=== PATIENT | female | born 1950 | race Hispanic/Latino ===

== ENCOUNTER 2019-02-26 13:10 | Inpatient (IN) | payer MEDICARE, OTHER ==
--- NOTE | 2019-02-26 14:52 | CT ---
Date of service: 02/26/2019 PROCEDURE: CT HEAD WITHOUT CONTRAST. HISTORY: head injury COMPARISON: None available. TECHNIQUE: Axial computed tomography images were obtained through the head/brain without intravenous contrast. Supplemental Coronal and Sagittal projections created and reviewed. Radiation dose: Total exam DLP = 806.93 mGy-cm. This CT exam was performed using one or more of the following dose reduction techniques: Automated exposure control, adjustment of the mA and/or kV according to patient size, and/or use of iterative reconstruction technique. FINDINGS: HEMORRHAGE: No intracranial hemorrhage. BRAIN: No mass effect or edema. No atrophy or chronic microvascular ischemic changes. VENTRICLES: Unremarkable. No hydrocephalus. CALVARIUM: Unremarkable. PARANASAL SINUSES: Unremarkable as visualized. No significant inflammatory changes. MASTOID AIR CELLS: Unremarkable as visualized. No inflammatory changes. OTHER FINDINGS: None. IMPRESSION: No acute intracranial abnormalities. No significant findings to account for the clinical presentation.
[2019-02-26 15:02] LABS: VENOUS BLOOD GAS BASE EXCESS 6.1 mmol/L (0.0-2.0); VENOUS BLOOD GAS PCO2 49 mmHg (40-60); VENOUS BLOOD GAS PO2 21 mm/Hg (30-55); VENOUS BLOOD PH 7.42 (7.32-7.43)
[2019-02-26 15:14] LABS: BASO % 0.3 % (0.0-2.0); EOS # 0.1 K/uL (0.0-0.7); EOS % 0.7 % (0.0-4.0); LYMPH # 0.5 K/uL (1.0-4.3); LYMPH % 6.3 % (20.0-40.0); MEAN CELL VOLUME 86.2 fl (81.0-99.0); MEAN CORPUSCULAR HEMOGLOBIN 28.8 pg (27.0-31.0); MEAN CORPUSCULAR HGB CONC 33.5 g/dL (33.0-37.0); MEAN PLATELET VOLUME 7.5 fl (7.2-11.7); MONO # 0.7 K/uL (0.0-0.8); MONO % 9.8 % (0.0-10.0); NEUT # 6.1 K/uL (1.8-7.0); NEUT % 82.9 % (50.0-75.0); NRBC % 0.1 % (0.0-0.0); PLATELET COUNT 261 K/uL (130-400); RBC 3.81 Mil/uL (3.80-5.20); RED CELL DISTRIBUTION WIDTH 14.3 % (11.5-14.5); WHITE BLOOD COUNT 7.4 K/uL (4.8-10.8)
[2019-02-26 15:23] LABS: BLOOD UREA NITROGEN 19 mg/dl (7-17); CALCIUM 10.1 mg/dL (8.4-10.2); GFR NON-AFRICAN AMERICAN > 60
--- NOTE | 2019-02-26 15:48 | ED PDOC ---
HPI: Trauma/Fall - HPI Time Seen by Provider: 02/26/19 13:25 Chief Complaint (Nursing): Trauma Chief Complaint (Provider): Trauma History Per: Patient Onset/Duration Of Symptoms: Hrs (1) Additional Complaint(s): 68 y/o female presents to the ED complaining for head injury after falling 1 hour ago today. Patient states she also has an injury on her right hand after recently falling a couple of times. She also reports she has swelling and wound with discharge on her left forearm for a week. Patient states her falls started after Reperda injection due to having a history of schizophrenia. Patient denies LOC, headache, fever, cough, chest pain, or any syncope. PMD: None provided Past Medical History Vital Signs: Last Vital Signs Temp 99.9 F H 02/26/19 14:36 Pulse 95 H 02/26/19 13:12 Resp 18 02/26/19 13:12 BP 143/80 02/26/19 13:12 Pulse Ox 96 02/26/19 13:12 - Medical History PMH: Anxiety, COPD, Depression, HTN, Hypercholesterolemia, Hyperlipidemia, Schizophrenia Denies: Chronic Kidney Disease - Surgical History Surgical History: Tonsillectomy, - Family History Family History: States: No Known Family Hx - Immunization History Hx Tetanus Toxoid Vaccination: No Hx Influenza Vaccination: No Hx Pneumococcal Vaccination: No - Home Medications Home Medications: Ambulatory Orders Medication Instructions Recorded Alendronate [Fosamax] 70 mg PO SUN 02/26/19 Atorvastatin [Lipitor] 10 mg PO DAILY 02/26/19 Baclofen [Lioresal] 10 mg PO Q12 02/26/19 Calcium Carbonate/Vitamin D3 1 tab PO Q12 02/26/19 [Calcium 500-Vit D3 200 Tablet] Cholecalciferol (Vitamin D3) 2,000 unit PO DAILY 02/26/19 [Vitamin D3] Docusate [Colace] 100 mg PO HS 02/26/19 Fluticasone/Salmeterol 250/50 1 puff IH Q12 02/26/19 [Advair Diskus 250/50] Gabapentin [Neurontin] 300 mg PO HS 02/26/19 Ginkgo Biloba 60 mg PO DAILY 02/26/19 Ibuprofen [Motrin Tab] 600 mg PO Q12 PRN 02/26/19 Lactulose [Generlac] 30 ml PO DAILY PRN 02/26/19 Lisinopril [Zestril] 10 mg PO DAILY 02/26/19 Loratadine [Claritin] 10 mg PO DAILY 02/26/19 Melatonin 5 mg PO HS 02/26/19 Memantine [Namenda] 10 mg PO Q12 02/26/19 Metoprolol Succinate XL [Toprol XL] 25 mg PO DAILY 02/26/19 Mirabegron [Myrbetriq] 25 mg PO DAILY 02/26/19 Mv,Min10/Folic Acid/D3/Ala/Lut 1 tab PO DAILY 02/26/19 [Strovite One Caplet] Olanzapine [Zyprexa] 15 mg PO HS 02/26/19 [place]-3 Fatty Acids/Fish Oil 1,000 mg PO BID 02/26/19 [[place]-3 1,000 mg Softgel] Omeprazole 40 mg PO DAILY 02/26/19 Oxybutynin XL [Ditropan XL] 10 mg PO HS 02/26/19 Ranitidine HCl [Zantac] 150 mg PO BID 02/26/19 Sertraline [Zoloft] 200 mg PO DAILY 02/26/19 Spironolactone [Aldactone] 25 mg PO DAILY 02/26/19 Vitamin E [Vitamin E 400 Units Cap] 400 unit PO DAILY 02/26/19 Zaleplon 5 mg PO HS PRN 02/26/19 - Allergies Allergies/Adverse Reactions: Allergies Allergy/AdvReac Type Severity Reaction Status Date / Time Sulfa (Sulfonamide Allergy RASH Verified 03/03/18 22:25 Antibiotics) Review of Systems ROS Statement: Except As Marked, All Systems Reviewed And Found Negative Constitutional: Negative for: Fever Cardiovascular: Negative for: Chest Pain Respiratory: Negative for: Cough Neurological: Positive for: Other (no syncope). Negative for: Headache Physical Exam - Reviewed Nursing Documentation Reviewed: Yes Vital Signs Reviewed: Yes - Physical Exam Appears: Positive for: Well, Non-toxic, No Acute Distress Head Exam: Positive for: ATRAUMATIC, NORMOCEPHALIC Skin: Positive for: Normal Color, Warm, Dry Eye Exam: Positive for: EOMI, Normal appearance, PERRL ENT: Positive for: Normal ENT Inspection Neck: Positive for: Normal, Painless ROM, Supple Cardiovascular/Chest: Positive for: Regular Rate, Rhythm. Negative for: Murmur Respiratory: Positive for: Normal Breath Sounds. Negative for: Respiratory Distress Gastrointestinal/Abdominal: Positive for: Normal Exam, Soft. Negative for: Tenderness Back: Positive for: Normal Inspection Extremity: Positive for: Normal ROM, Other (redness around right wrist. abrasion right hand and 5th finger. left forearms has swelling and a 5cm wound that is draning with purity fluid and surrounding erythema. no flatulent. ). Negative for: Deformity, Swelling Neurological/Psych: Positive for: Awake, Alert, Normal Tone, Oriented (x3). Negative for: Motor/Sensory Deficits - Laboratory Results Result Diagrams: 02/26/19 15:00 02/26/19 15:00 Lab Results: pO2 21 mm/Hg (30-55) L 02/26/19 14:59 VBG pH 7.42 (7.32-7.43) 02/26/19 14:59 VBG pCO2 49 mmHg (40-60) 02/26/19 14:59 VBG HCO3 28.0 mmol/L 02/26/19 14:59 VBG Total CO2 33.3 mmol/L (22-28) H 02/26/19 14:59 VBG O2 Sat (Calc) 34.0 % (40-65) L 02/26/19 14:59 VBG Base Excess 6.1 mmol/L (0.0-2.0) H 02/26/19 14:59 VBG Potassium 4.0 mmol/L (3.6-5.2) 02/26/19 14:59 Sodium 132.0 mmol/L (132-148) 02/26/19 14:59 Chloride 96.0 mmol/L (98-107) L 02/26/19 14:59 Glucose 105 mg/dL (65-105) 02/26/19 14:59 Lactate 1.0 mmol/L (0.7-2.1) 02/26/19 14:59 FiO2 21.0 % 02/26/19 14:59 Troponin I < 0.0120 ng/mL (0.00-0.120) 02/26/19 15:00 - ECG O2 Sat by Pulse Oximetry: 96 Medical Decision Making Medical Decision Making: Time:1356 Initial Impression: head injury, hand injury, falls, abscess and cellulitis on left foreharm Initial Plan: rule out intracranial bleeding, hand fracture, cellulitis with sepsis -CT -EKG -VBG shock panel -BMP -Troponin -CBC -Tylenol 325mg -Vancomycin inj 1gm -Blood culture -wound culture -x-ray Time: 1448 PROCEDURE: CT HEAD WITHOUT CONTRAST. HISTORY: head injury COMPARISON: None available. TECHNIQUE: Axial computed tomography images were obtained through the head/brain without intravenous contrast. Supplemental Coronal and Sagittal projections created and reviewed. Radiation dose: Total exam DLP = 806.93 mGy-cm. This CT exam was performed using one or more of the following dose reduction techniques: Automated exposure control, adjustment of the mA and/or kV according to patient size, and/or use of iterative reconstruction technique. FINDINGS: HEMORRHAGE: No intracranial hemorrhage. BRAIN: No mass effect or edema. No atrophy or chronic microvascular ischemic changes. VENTRICLES: Unremarkable. No hydrocephalus. CALVARIUM: Unremarkable. PARANASAL SINUSES: Unremarkable as visualized. No significant inflammatory changes. MASTOID AIR CELLS: Unremarkable as visualized. No inflammatory changes. OTHER FINDINGS: None. IMPRESSION: No acute intracranial abnormalities. No significant findings to account for the clinical presentation. Time: 1641 HAND XR RESULTS PROCEDURE: Right Hand Radiographs. HISTORY: right hand injury COMPARISON: None. TECHNIQUE: Three views obtained. FINDINGS: BONES: There is an oblique fracture involving the diaphysis of the right 5th metacarpal bone with minimal proximal distraction of the major fracture fragment. Non articular fracture however minimal comminution identified. No destructive bony lesions appreciated throughout. JOINTS: No subluxation or dislocation. Extensive degenerative joint space narrowing and osteophyte formation are identified developed related to the distal interphalangeal joints of the digits as well as the interphalangeal joint of the thumb compatible with advanced osteoarthritis. SOFT TISSUES: Minimal local soft tissue edema is seen related to the fracture site. OTHER FINDINGS: None. IMPRESSION: Oblique fracture with mild proximal distraction of the major fracture fragment at the left 5th metacarpal bone. Limited comminution is appreciate. No dislocation associated. ------ Scribe Attestation: Documented by Reba Coppola, acting as a scribe for Sherry Josue Provider Scribe Attestation: All medical record entries made by the Scribe were at my direction and personally dictated by me. I have reviewed the chart and agree that the record accurately reflects my personal performance of the history, physical exam, medical decision making, and the department course for this patient. I have also personally directed, reviewed, and agree with the discharge instructions and disposition. Time: 1730 -- Spoke to Dr. Cheng who requests a ulmagata splint to be placed and instructions to follow up in office. Scribe Attestation: Documented by Matthew Smith, acting as a scribe Hung Josue MD. Provider Scribe Attestation: All medical record entries made by the Scribe were at my direction and personally dictated by me. I have reviewed the chart and agree that the record accurately reflects my personal performance of the history, physical exam, medical decision making, and the department course for this patient. I have also personally directed, reviewed, and agree with the discharge instructions and disposition. Disposition - Clinical Impression Clinical Impression: Cellulitis of left arm, Right hand fracture, Sepsis - Patient ED Disposition Is Patient to be Admitted: Yes Discussed With : Trevor Griffiths Doctor Will See Patient In The: Hospital Counseled Patient/Family Regarding: Studies Performed, Diagnosis - Disposition Disposition Time: 18:00 Condition: FAIR - Pt Status Changed To: Hospital Disposition Of: Inpatient - Admit Certification Admit to Inpatient:: After my assessment, the patient will require hospitalization for at least two midnights. This is because of the severity of symptoms shown, intensity of services needed, and/or the medical risk in this patient being treated as an outpatient. - POA Present On Arrival: Falls Or Trauma
[2019-02-26] MEDS ORDERED: Vancomycin 1 g Inj ONE (16:14)
[2019-02-26 16:42] LABS: ANISOCYTOSIS SLIGHT; BANDS 1 % (0-2); EOSINOPHIL 1 % (0-7); LYMPHOCYTE 10 % (20-50); MONOCYTE 10 % (0-10); NEUTROPHIL 78 % (42-75); PLATELET ESTIMATE NORMAL (NORMAL); TOTAL CELLS COUNTED 100
[2019-02-26 16:43] LABS: HYPOCHROMIC SLIGHT
--- NOTE | 2019-02-26 16:44 | RAD ---
PROCEDURE: Right Hand Radiographs. HISTORY: right hand injury COMPARISON: None. TECHNIQUE: Three views obtained. FINDINGS: BONES: There is an oblique fracture involving the diaphysis of the right 5th metacarpal bone with minimal proximal distraction of the major fracture fragment. Non articular fracture however minimal comminution identified. No destructive bony lesions appreciated throughout. JOINTS: No subluxation or dislocation. Extensive degenerative joint space narrowing and osteophyte formation are identified developed related to the distal interphalangeal joints of the digits as well as the interphalangeal joint of the thumb compatible with advanced osteoarthritis. SOFT TISSUES: Minimal local soft tissue edema is seen related to the fracture site. OTHER FINDINGS: None. IMPRESSION: Oblique fracture with mild proximal distraction of the major fracture fragment at the left 5th metacarpal bone. Limited comminution is appreciate. No dislocation associated.
--- NOTE | 2019-02-26 19:17 | CARD ---
APPROVED REPORT Date of service: 02/26/2019 EKG Measurement Heart [id number] <Conclusion> Normal sinus rhythm Normal ECG
[2019-02-26] MEDS ORDERED: Fluticasone-Salmeterol 250-50mcg Diskus IH SCH (21:00)
[2019-02-26] MEDS ORDERED: OXYBUTYNIN 10 MG PO SCH (22:00)
[2019-02-26] MEDS: Calcium-Vit D 500 mg-200 Units Tab UD PO SCH (23:22)
[2019-02-26] MEDS: FLUTICASONE PROPION/SALMETEROL 113-14 IH SCH (23:23)
[2019-02-27 06:27] LABS: HEMOGLOBIN 10.4 g/dL (12.0-16.0); MEAN CELL VOLUME 87.2 fl (81.0-99.0); MEAN CORPUSCULAR HGB CONC 33.2 g/dL (33.0-37.0); RBC 3.6 Mil/uL (3.80-5.20); RED CELL DISTRIBUTION WIDTH 14.3 % (11.5-14.5); WHITE BLOOD COUNT 6.4 K/uL (4.8-10.8)
[2019-02-27 06:39] LABS: ALB/GLOB RATIO 1.2 (1.0-2.1); ALBUMIN 3.6 g/dL (3.5-5.0); ALT/SGPT 48 U/L (9-52); AST/SGOT 64 U/L (14-36); BLOOD UREA NITROGEN 20 mg/dl (7-17); CALCIUM 9.6 mg/dL (8.4-10.2); GFR NON-AFRICAN AMERICAN > 60
[2019-02-27 07:14] VITALS: BMI 24.0
[2019-02-27] MEDS ORDERED: GINKGO BILOBA 60 MG PO SCH (09:00)
[2019-02-27] MEDS ORDERED: Omega-3-Acid Ethyl Esters 1 GM Cap PO SCH (09:00)
[2019-02-27] MEDS: FLUTICASONE PROPION/SALMETEROL 113-14 IH SCH ×2 (09:19→21:10)
[2019-02-27] MEDS: Enoxaparin 40 mg Syringe SC SCH (09:22)
[2019-02-27] MEDS: Calcium-Vit D 500 mg-200 Units Tab UD PO SCH ×2 (09:23→21:10)
[2019-02-27] MEDS: Pantoprazole 40 mg EC Tab PO SCH (09:24)
[2019-02-27] MEDS: Metoprolol Succinate 25 mg XL Tab PO SCH (09:24)
[2019-02-27] MEDS: Cholecalciferol 1,000 INTLU TAB PO SCH (09:25)
--- NOTE | 2019-02-27 13:19 | CP.PCM.CON ---
History of Present Illness - History of Present Illness History of Present Illness: 68yo F presents to Ed for evaluation s/p fall and found to have a right wrist injury. General Surgery was consulted for evaluation of left forearm cellulitis. Pt reports that she previously had a pimple to left forearm area but about 1 week ago she ago had a fall and subsequently became to develop redness around the area. Pt also states she was picking at the pimple and squeezing. Reports minimal discomfort to left forearm and currently no active discharge. PMhx: HTN, schizophrenia, depression PSHx: . Review of Systems - Constitutional Constitutional: As Per HPI, Frequent Falls, Headache, Weakness. absent: Fatigue, Fever - EENT Eyes: absent: Loss of Vision Ears: absent: Decreased Hearing Nose/Mouth/Throat: absent: Epistaxis - Cardiovascular Cardiovascular: absent: Chest Pain, Chest Pain at Rest, Chest Pain with Acti vity, Claudication, Dyspnea - Respiratory Respiratory: As Per HPI. absent: Wheezing - Gastrointestinal Gastrointestinal: absent: Abdominal Pain, Bloating, Diarrhea, Dyspepsia, Hematochezia, Vomiting - Genitourinary Genitourinary: absent: Dysuria, Hematuria - Integumentary Integumentary: Skin Ulcer (to left forearm ), Swelling (left forearm), Other (erythema ) Past Patient History - Infectious Disease Hx of Infectious Diseases: None - Tetanus Immunizations Tetanus Immunization: Unknown - Past Medical History & Family History Past Medical History?: Yes - Past Social History Smoking Status: Never Smoked - CARDIAC Hx Cardiac Disorders: Yes Hx Hypertension: Yes - PULMONARY Hx Respiratory Disorders: Yes Hx Chronic Obstructive Pulmonary Disease (COPD): Yes - NEUROLOGICAL Hx Neurological Disorder: Yes Hx Dizziness: Yes - HEENT Hx HEENT Problems: Yes Other/Comment: Use Eyeglasses - RENAL Hx Chronic Kidney Disease: No - ENDOCRINE/METABOLIC Hx Endocrine Disorders: No - HEMATOLOGICAL/ONCOLOGICAL Hx Blood Disorders: No - INTEGUMENTARY Hx Dermatological Problems: Yes Other/Comment: 03-02-18 FADING BRUISE TO LEFT THIGH.DENIES FALLING.HIT IT ON SOMETHING. LARGE HORIZONTAL SCAR TO LOWER BACK.HAS A HAIRY BACK. - MUSCULOSKELETAL/RHEUMATOLOGICAL Hx Musculoskeletal Disorders: Yes Hx Falls: Yes Hx Fractures: Yes - GASTROINTESTINAL Hx Gastrointestinal Disorders: No - GENITOURINARY/GYNECOLOGICAL Hx Genitourinary Disorders: Yes Hx Urinary Tract Infection: Yes Other/Comment: STRESS INCONTINENCE,URGENCY. - PSYCHIATRIC Hx Psychophysiologic Disorder: Yes Hx Anxiety: Yes Hx Depression: Yes Hx Schizophrenia: Yes Hx Substance Use: No - SURGICAL HISTORY Hx Surgeries: Yes Hx Tonsillectomy: Yes Other/Comment: Herniated Septum - 1975 - ANESTHESIA Hx Anesthesia: Yes Hx Anesthesia Reactions: No Hx Malignant Hyperthermia: No Has any member of the family had a problem w/ anesthesia?: No Meds Allergies/Adverse Reactions: Allergies Allergy/AdvReac Type Severity Reaction Status Date / Time Sulfa (Sulfonamide Allergy RASH Verified 03/03/18 22:25 Antibiotics) - Medications Medications: Current Medications Acetaminophen (Tylenol 325mg Tab) 650 mg PO Q4 PRN PRN Reason: Pain, Mild (1-3) Alendronate Sodium (Fosamax) 70 mg PO [facility] Atorvastatin Calcium (Lipitor) 10 mg PO DAILY [facility] Last Admin: 02/27/19 09:22 Dose: 10 mg Baclofen (Lioresal) 10 mg PO Q12 [facility] Last Admin: 02/27/19 09:22 Dose: 10 mg Calcium/Vitamin D ([place]yster [place] Calcium/Vitamin D 500 Mg-200 Iu) 1 tab PO Q12 [facility] Last Admin: 02/27/19 09:23 Dose: 1 tab Cholecalciferol (Vitamin D) 2,000 intlu PO DAILY [facility] Last Admin: 02/27/19 09:25 Dose: 2,000 intlu Docusate Sodium (Colace) 100 mg PO [facility] Last Admin: 02/26/19 23:20 Dose: 100 mg Enoxaparin Sodium (Lovenox) 40 mg SC DAILY [facility]; Protocol Last Admin: 02/27/19 09:22 Dose: 40 mg Famotidine (Pepcid) 20 mg PO BID [facility] Last Admin: 02/27/19 09:24 Dose: 20 mg Gabapentin (Neurontin) 300 mg PO [facility] Last Admin: 02/26/19 23:22 Dose: 300 mg Home Med (Ginkgo Biloba [Ginkgo Biloba]) 60 mg PO DAILY [facility] Home Med (Melatonin [Melatonin]) 5 mg PO HS [facility] Home Med (Mirabegron [Myrbetriq]) 25 mg PO DAILY [facility] Home Med (Mv,Min10/Folic Acid/D3/Ala/Lut [Strovite One Caplet]) 1 tab PO DAILY [facility] Home Med ([place]-3 Fatty Acids/Fish Oil [[place]-3 1,000 Mg Softgel]) 1,000 mg PO BID [facility] Home Med (Zaleplon ) 5 mg PO HS PRN PRN Reason: Insomnia Vancomycin HCl 1 gm/ Sodium (Chloride) 250 mls @ 166.667 mls/hr IVPB Q12H [facility]; Protocol Last Admin: 02/27/19 05:41 Dose: 166.667 mls/hr Ibuprofen (Motrin Tab) 600 mg PO Q12 PRN PRN Reason: Pain, moderate (4-7) Lisinopril (Zestril) 10 mg PO DAILY [facility] Last Admin: 02/27/19 09:25 Dose: 10 mg Loratadine (Claritin) 10 mg PO DAILY [facility] Last Admin: 02/27/19 09:21 Dose: 10 mg Memantine (Namenda) 10 mg PO Q12 [facility] Last Admin: 02/27/19 09:23 Dose: 10 mg Metoprolol Succinate (Toprol Xl) 25 mg PO DAILY [facility] Last Admin: 02/27/19 09:24 Dose: 25 mg Olanzapine (Zyprexa) 15 mg PO DAILY [facility] Last Admin: 02/27/19 09:26 Dose: 15 mg Oxybutynin Chloride (Ditropan Tab) 5 mg PO BID [facility] Last Admin: 02/27/19 11:41 Dose: 5 mg Pantoprazole Sodium (Protonix Ec Tab) 40 mg PO DAILY [facility] Last Admin: 02/27/19 09:24 Dose: 40 mg Sertraline HCl (Zoloft) 200 mg PO DAILY [facility] Last Admin: 02/27/19 09:26 Dose: 200 mg Spironolactone (Aldactone) 25 mg PO DAILY [facility] Last Admin: 02/27/19 09:20 Dose: 25 mg Vitamin E (Vitamin E 400 Units Cap) 400 intlu PO DAILY [facility] Last Admin: 02/27/19 09:25 Dose: 400 intlu Physical Exam - Constitutional Appears: No Acute Distress - Head Exam Head Exam: NORMOCEPHALIC - Eye Exam Eye Exam: EOMI, PERRL Additional comments: bruising to right periorbital region - ENT Exam ENT Exam: Mucous Membranes Moist - Neck Exam Neck exam: Negative for: Lymphadenopathy - Respiratory Exam Respiratory Exam: Clear to Auscultation Bilateral, NORMAL BREATHING PATTERN - Cardiovascular Exam Cardiovascular Exam: +S1, +S2 - GI/Abdominal Exam GI & Abdominal Exam: Soft. absent: Distended, Guarding, Tenderness - Skin Additional comments: left forearm swelling, erythema with 1x 1.5 wound with scab over it soft, minimal fluctuance, surrounding erythema, intact range of motion, +radial pulse, full range of motion to left hand area right hand with splint in place m Results - Vital Signs Recent Vital Signs: Last Vital Signs Temp 97.6 F 02/27/19 08:41 Pulse 88 02/27/19 11:25 Resp 20 02/27/19 08:41 BP 125/63 02/27/19 09:25 Pulse Ox 97 02/27/19 11:25 - Labs Result Diagrams: 02/27/19 05:25 02/27/19 05:25 Labs: Laboratory Results - last 24 hr 02/26/19 02/26/19 02/26/19 14:59 15:00 15:00 WBC 7.4 RBC 3.81 Hgb 11.0 L Hct 32.9 L MCV 86.2 MCH 28.8 MCHC 33.5 RDW 14.3 Plt Count 261 MPV 7.5 Neut % (Auto) 82.9 H Lymph % (Auto) 6.3 L [place] % (Auto) 9.8 Eos % (Auto) 0.7 Baso % (Auto) 0.3 Neut # (Auto) 6.1 Lymph # (Auto) 0.5 L [place] # (Auto) 0.7 Eos # (Auto) 0.1 Baso # (Auto) 0.0 Neutrophils % (Manual) 78 H Band Neutrophils % 1 Lymphocytes % (Manual) 10 L Monocytes % (Manual) 10 Eosinophils % (Manual) 1 Platelet Estimate Normal Hypochromasia (manual) Slight Anisocytosis (manual) Slight pO2 21 L VBG pH 7.42 VBG pCO2 49 VBG HCO3 28.0 VBG Total CO2 33.3 H VBG O2 Sat (Calc) 34.0 L VBG Base Excess 6.1 H VBG Potassium 4.0 Sodium 132.0 133 Chloride 96.0 L 95 L Glucose 105 Lactate 1.0 FiO2 21.0 Potassium 4.0 Carbon Dioxide 30 Anion Gap 12 BUN 19 H Creatinine 0.6 L Est GFR ( Amer) > 60 Est GFR (Non-Af Amer) > 60 Random Glucose 107 H Calcium 10.1 Total Bilirubin AST ALT Alkaline Phosphatase Troponin I < 0.0120 Total Protein Albumin Globulin Albumin/Globulin Ratio Venous Blood Potassium 4.0 02/27/19 02/27/19 05:25 05:25 WBC 6.4 RBC 3.60 L Hgb 10.4 L Hct 31.3 L MCV 87.2 MCH 29.0 MCHC 33.2 RDW 14.3 Plt Count 253 MPV Neut % (Auto) Lymph % (Auto) [place] % (Auto) Eos % (Auto) Baso % (Auto) Neut # (Auto) Lymph # (Auto) [place] # (Auto) Eos # (Auto) Baso # (Auto) Neutrophils % (Manual) Band Neutrophils % Lymphocytes % (Manual) Monocytes % (Manual) Eosinophils % (Manual) Platelet Estimate Hypochromasia (manual) Anisocytosis (manual) pO2 VBG pH VBG pCO2 VBG HCO3 VBG Total CO2 VBG O2 Sat (Calc) VBG Base Excess VBG Potassium Sodium 136 Chloride 100 Glucose Lactate FiO2 Potassium 3.8 Carbon Dioxide 26 Anion Gap 14 BUN 20 H Creatinine 0.5 L Est GFR ( Amer) > 60 Est GFR (Non-Af Amer) > 60 Random Glucose 91 Calcium 9.6 Total Bilirubin 0.7 AST 64 H D ALT 48 Alkaline Phosphatase 84 Troponin I Total Protein 6.6 Albumin 3.6 Globulin 3.0 Albumin/Globulin Ratio 1.2 Venous Blood Potassium Assessment & Plan - Assessment and Plan (Free Text) Assessment: 68yo F s/p fall with left arm cellulitis with minimal central area of fluctuance -wound actively draining -wound culture sent -IV abx -warm compresses to left forearm area -will monitor
--- NOTE | 2019-02-27 16:16 | US ---
Date of service: 02/27/2019 PROCEDURE: Left Upper Extremity Venous Doppler HISTORY: r/o dvt COMPARISON: None available. TECHNIQUE: Left upper extremity deep veins, including the lower internal jugular, subclavian, axillary and brachial veins, were evaluated flow, graded compressibility, augmentation and respiratory phasicity. FINDINGS: Normal flow, compressibility and respiratory phasicity was observed in the the left upper extremity deep veins. The cephalic ulnar and radial veins also appear patent. IMPRESSION: No sonographic evidence of deep venous thrombosis left upper extremity.
--- NOTE | 2019-02-27 21:32 | CP.PCM.CON ---
History of Present Illness - History of Present Illness History of Present Illness: pt is a 68yo F with history of schizophrenia presents to [facility] for evaluation s/p fall pt on evaluation reported have been diagnosed with schizophrenia since age 34, multiple psychiatric hospitalizations including [facility] and last hospi talization 02/2018 pt currently lives by herself has a case manger she sees twice a week and follows up with psychiatrist in [place] pt reported at current time she has no changes in sleep or appetite, denied mood changes, denied psychotic symptoms reported that she continues to have problem with hoarding which his nurse case management is trying to help her with, denied any current suicidal or homicidal ideation Past Patient History - Infectious Disease Hx of Infectious Diseases: None - Tetanus Immunizations Tetanus Immunization: Unknown - Past Medical History & Family History Past Medical History?: Yes - Past Social History Smoking Status: Never Smoked - CARDIAC Hx Cardiac Disorders: Yes Hx Hypertension: Yes - PULMONARY Hx Respiratory Disorders: Yes Hx Chronic Obstructive Pulmonary Disease (COPD): Yes - NEUROLOGICAL Hx Neurological Disorder: Yes Hx Dizziness: Yes - HEENT Hx HEENT Problems: Yes Other/Comment: Use Eyeglasses - RENAL Hx Chronic Kidney Disease: No - ENDOCRINE/METABOLIC Hx Endocrine Disorders: No - HEMATOLOGICAL/ONCOLOGICAL Hx Blood Disorders: No - INTEGUMENTARY Hx Dermatological Problems: Yes Other/Comment: 03-02-18 FADING BRUISE TO LEFT THIGH.DENIES FALLING.HIT IT ON SOMETHING. LARGE HORIZONTAL SCAR TO LOWER BACK.HAS A HAIRY BACK. - MUSCULOSKELETAL/RHEUMATOLOGICAL Hx Musculoskeletal Disorders: Yes Hx Falls: Yes Hx Fractures: Yes - GASTROINTESTINAL Hx Gastrointestinal Disorders: No - GENITOURINARY/GYNECOLOGICAL Hx Genitourinary Disorders: Yes Hx Urinary Tract Infection: Yes Other/Comment: STRESS INCONTINENCE,URGENCY. - PSYCHIATRIC Hx Psychophysiologic Disorder: Yes Hx Anxiety: Yes Hx Depression: Yes Hx Schizophrenia: Yes Hx Substance Use: No - SURGICAL HISTORY Hx Surgeries: Yes Hx Tonsillectomy: Yes Other/Comment: Herniated Septum - 1974 - ANESTHESIA Hx Anesthesia: Yes Hx Anesthesia Reactions: No Hx Malignant Hyperthermia: No Has any member of the family had a problem w/ anesthesia?: No Meds Allergies/Adverse Reactions: Allergies Allergy/AdvReac Type Severity Reaction Status Date / Time Sulfa (Sulfonamide Allergy RASH Verified 03/03/18 22:25 Antibiotics) - Medications Medications: Current Medications Acetaminophen (Tylenol 325mg Tab) 650 mg PO Q4 PRN PRN Reason: Pain, Mild (1-3) Alendronate Sodium (Fosamax) 70 mg PO SUN [facility] Atorvastatin Calcium (Lipitor) 10 mg PO DAILY [facility] Last Admin: 02/27/19 09:22 Dose: 10 mg Baclofen (Lioresal) 10 mg PO Q12 [facility] Last Admin: 02/27/19 21:10 Dose: 10 mg Calcium/Vitamin D (Oyster Shell Calcium/Vitamin D 500 Mg-200 Iu) 1 tab PO Q12 [facility] Last Admin: 02/27/19 21:10 Dose: 1 tab Cholecalciferol (Vitamin D) 2,000 intlu PO DAILY [facility] Last Admin: 02/27/19 09:25 Dose: 2,000 intlu Docusate Sodium (Colace) 100 mg PO HS [facility] Last Admin: 02/27/19 21:10 Dose: 100 mg Enoxaparin Sodium (Lovenox) 40 mg SC DAILY [facility]; Protocol Last Admin: 02/27/19 09:22 Dose: 40 mg Famotidine (Pepcid) 20 mg PO BID [facility] Last Admin: 02/27/19 18:08 Dose: 20 mg Gabapentin (Neurontin) 300 mg PO HS [facility] Last Admin: 02/27/19 21:10 Dose: 300 mg Home Med (Ginkgo Biloba [Ginkgo Biloba]) 60 mg PO DAILY [facility] Home Med (Melatonin [Melatonin]) 5 mg PO HS [facility] Home Med (Mirabegron [Myrbetriq]) 25 mg PO DAILY [facility] Home Med (Mv,Min10/Folic Acid/D3/Ala/Lut [Strovite One Caplet]) 1 tab PO DAILY [facility] Home Med (Zaleplon ) 5 mg PO HS PRN PRN Reason: Insomnia Vancomycin HCl 1 gm/ Sodium (Chloride) 250 mls @ 166.667 mls/hr IVPB Q12H [facility]; Protocol Last Admin: 02/27/19 18:47 Dose: 166.667 mls/hr Ibuprofen (Motrin Tab) 600 mg PO Q12 PRN PRN Reason: Pain, moderate (4-7) Lisinopril (Zestril) 10 mg PO DAILY [facility] Last Admin: 02/27/19 09:25 Dose: 10 mg Loratadine (Claritin) 10 mg PO DAILY [facility] Last Admin: 04/16/19 09:21 Dose: 10 mg Memantine (Namenda) 10 mg PO Q12 [facility] Last Admin: 02/27/19 21:10 Dose: 10 mg Metoprolol Succinate (Toprol Xl) 25 mg PO DAILY [facility] Last Admin: 02/27/19 09:24 Dose: 25 mg Olanzapine (Zyprexa) 15 mg PO DAILY [facility] Last Admin: 02/27/19 09:26 Dose: 15 mg [id number] Ethyl Esters (Lovaza) 1 gm PO BID [facility] Oxybutynin Chloride (Ditropan Tab) 5 mg PO BID [facility] Last Admin: 02/27/19 18:08 Dose: 5 mg Pantoprazole Sodium (Protonix Ec Tab) 40 mg PO DAILY [facility] Last Admin: 02/27/19 09:24 Dose: 40 mg Sertraline HCl (Zoloft) 200 mg PO DAILY [facility] Last Admin: 02/27/19 09:26 Dose: 200 mg Spironolactone (Aldactone) 25 mg PO DAILY [facility] Last Admin: 02/27/19 09:20 Dose: 25 mg Vitamin E (Vitamin E 400 Units Cap) 400 intlu PO DAILY [facility] Last Admin: 02/27/19 09:25 Dose: 400 intlu Physical Exam - Psychiatric Exam Additional comments: pt seen sitting on achair, good eye contact speech normal thought form circumstantial, reported mood fine affect appropriate concrete thought process denied suicidal or homicidal ideation, denied perceptual disturbances, non elicited, alert awake oriented to person and place fair insight and judgment Results - Vital Signs Recent Vital Signs: Last Vital Signs Temp 98.3 F 02/27/19 17:00 Pulse 71 02/27/19 17:00 Resp 18 02/27/19 17:00 BP 117/73 02/27/19 17:00 Pulse Ox 97 02/27/19 17:00 - Labs Result Diagrams: 02/27/19 05:25 02/27/19 05:25 Labs: Laboratory Results - last 24 hr 02/27/19 02/27/19 02/27/19 05:25 05:25 16:55 WBC 6.4 RBC 3.60 L Hgb 10.4 L Hct 31.3 L MCV 87.2 MCH 29.0 MCHC 33.2 RDW 14.3 Plt Count 253 Sodium 136 Potassium 3.8 Chloride 100 Carbon Dioxide 26 Anion Gap 14 BUN 20 H Creatinine 0.5 L Est GFR ( Amer) > 60 Est GFR (Non-Af Amer) > 60 Random Glucose 91 Calcium 9.6 Iron 18 L TIBC 271 % Saturation 7 L Ferritin Total Bilirubin 0.7 AST 64 H D ALT 48 Alkaline Phosphatase 84 Total Protein 6.6 Albumin 3.6 Globulin 3.0 Albumin/Globulin Ratio 1.2 Vitamin B12 25-OH Vitamin D Total 99.2 02/27/19 16:55 WBC RBC Hgb Hct MCV MCH MCHC RDW Plt Count Sodium Potassium Chloride Carbon Dioxide Anion Gap BUN Creatinine Est GFR ( Amer) Est GFR (Non-Af Amer) Random Glucose Calcium Iron TIBC % Saturation Ferritin 106.0 Total Bilirubin AST ALT Alkaline Phosphatase Total Protein Albumin Globulin Albumin/Globulin Ratio Vitamin B12 879 25-OH Vitamin D Total Assessment & Plan - Assessment and Plan (Free Text) Assessment: schizophrenia hoarding disorder Plan: pt at current mental status stable recommend to decrease zyprexa to 10mg daily decrease zoloft to 150 mg daily recommend that social services manager to contact nurse case management for more collateral information about patient living situation
[2019-02-28 06:50] LABS: ALB/GLOB RATIO 1.1 (1.0-2.1); ALBUMIN 3.3 g/dL (3.5-5.0); ALT/SGPT 50 U/L (9-52); AST/SGOT 52 U/L (14-36); BLOOD UREA NITROGEN 20 mg/dl (7-17); CALCIUM 9.6 mg/dL (8.4-10.2); GFR NON-AFRICAN AMERICAN > 60
[2019-02-28 06:56] LABS: BASO % 0.5 % (0.0-2.0); EOS # 0.3 K/uL (0.0-0.7); EOS % 5.2 % (0.0-4.0); HEMOGLOBIN 10.2 g/dL (12.0-16.0); LYMPH # 0.6 K/uL (1.0-4.3); LYMPH % 10.9 % (20.0-40.0); MEAN CELL VOLUME 86.3 fl (81.0-99.0); MEAN CORPUSCULAR HEMOGLOBIN 29.1 pg (27.0-31.0); MEAN CORPUSCULAR HGB CONC 33.7 g/dL (33.0-37.0); MEAN PLATELET VOLUME 7.8 fl (7.2-11.7); MONO # 0.7 K/uL (0.0-0.8); MONO % 11.5 % (0.0-10.0); NEUT # 4.1 K/uL (1.8-7.0); NEUT % 71.9 % (50.0-75.0); RBC 3.49 Mil/uL (3.80-5.20); RED CELL DISTRIBUTION WIDTH 14.2 % (11.5-14.5); WHITE BLOOD COUNT 5.7 K/uL (4.8-10.8)
[2019-02-28] MEDS ORDERED: Hydrogen Peroxide 237 ML SOL TP ONE (09:19)
[2019-02-28] MEDS: FLUTICASONE PROPION/SALMETEROL 113-14 IH SCH ×2 (09:39→23:06)
[2019-02-28] MEDS: Cholecalciferol 1,000 INTLU TAB PO SCH (09:40)
[2019-02-28] MEDS: Omega-3-Acid Ethyl Esters 1 GM Cap PO SCH ×2 (09:40→16:56)
[2019-02-28] MEDS: Calcium-Vit D 500 mg-200 Units Tab UD PO SCH ×2 (09:40→23:01)
[2019-02-28] MEDS: Multivitamin With Minerals Tab PO SCH (09:40)
[2019-02-28] MEDS: Enoxaparin 40 mg Syringe SC SCH (09:41)
[2019-02-28] MEDS: Metoprolol Succinate 25 mg XL Tab PO SCH (09:41)
[2019-02-28] MEDS: Pantoprazole 40 mg EC Tab PO SCH (09:42)
--- NOTE | 2019-02-28 11:44 | CP.PCM.PN ---
<Latonia Gonzáles - Last Filed: 02/28/19 11:56> Subjective - Date & Time of Evaluation Date of Evaluation: 02/28/19 Time of Evaluation: 11:44 - Subjective Subjective: General Surgery Progress Note: Dr. Kenyon 68 year old female patient seen and examined this am. Patient resting comfortably and in NAD. No acute events overnight. Patient reports mild pain to the left forearm at this time. Denies nausea/vomiting/fever/shortness of breath. Objective - Vital Signs/Intake and Output Vital Signs (last 24 hours): Temp Pulse Resp BP Pulse Ox 98.9 F 73 20 118/65 95 02/28/19 07:52 02/28/19 10:03 02/28/19 07:52 02/28/19 10:03 02/28/19 07:52 - Medications Medications: Current Medications Acetaminophen (Tylenol 325mg Tab) 650 mg PO Q4 PRN PRN Reason: Pain, Mild (1-3) Alendronate Sodium (Fosamax) 70 mg PO [facility] Atorvastatin Calcium (Lipitor) 10 mg PO DAILY [facility] Last Admin: 02/28/19 09:43 Dose: 10 mg Baclofen (Lioresal) 10 mg PO Q12 [facility] Last Admin: 02/28/19 09:42 Dose: 10 mg Calcium/Vitamin D (Oyster Shell Calcium/Vitamin D 500 Mg-200 Iu) 1 tab PO Q12 [facility] Last Admin: 02/28/19 09:40 Dose: 1 tab Cholecalciferol (Vitamin D) 2,000 intlu PO DAILY [facility] Last Admin: 02/28/19 09:40 Dose: 2,000 intlu Docusate Sodium (Colace) 100 mg PO [facility] Last Admin: 02/27/19 21:10 Dose: 100 mg Enoxaparin Sodium (Lovenox) 40 mg SC DAILY [facility]; Protocol Last Admin: 02/28/19 09:41 Dose: 40 mg Famotidine (Pepcid) 20 mg PO BID [facility] Last Admin: 02/28/19 09:39 Dose: 20 mg Gabapentin (Neurontin) 300 mg PO [facility] Last Admin: 02/27/19 21:10 Dose: 300 mg Vancomycin HCl 1 gm/ Sodium (Chloride) 250 mls @ 166.667 mls/hr IVPB Q12H [facility]; Protocol Last Admin: 02/28/19 05:06 Dose: 166.667 mls/hr Ibuprofen (Motrin Tab) 600 mg PO Q12 PRN PRN Reason: Pain, moderate (4-7) Lisinopril (Zestril) 10 mg PO DAILY [facility] Last Admin: 02/28/19 10:03 Dose: 10 mg Loratadine (Claritin) 10 mg PO DAILY [facility] Last Admin: 02/28/19 09:40 Dose: 10 mg Memantine (Namenda) 10 mg PO Q12 [facility] Last Admin: 02/28/19 09:41 Dose: 10 mg Metoprolol Succinate (Toprol Xl) 25 mg PO DAILY [facility] Last Admin: 02/28/19 09:41 Dose: 25 mg Multivitamins/Minerals (Therapeutic-M Tab) 1 tab PO DAILY [facility] Last Admin: 02/28/19 09:40 Dose: 1 tab Olanzapine (Zyprexa) 10 mg PO HS [facility] [id number] Ethyl Esters (Lovaza) 1 gm PO BID [facility] Last Admin: 02/28/19 09:40 Dose: 1 gm Oxybutynin Chloride (Ditropan Tab) 5 mg PO BID [facility] Last Admin: 02/28/19 09:43 Dose: 5 mg Pantoprazole Sodium (Protonix Ec Tab) 40 mg PO DAILY [facility] Last Admin: 02/28/19 09:42 Dose: 40 mg Sertraline HCl (Zoloft) 150 mg PO DAILY [facility] Spironolactone (Aldactone) 25 mg PO DAILY [facility] Last Admin: 02/28/19 09:42 Dose: 25 mg Vitamin E (Vitamin E 400 Units Cap) 400 intlu PO DAILY [facility] Last Admin: 02/28/19 09:40 Dose: 400 intlu Zolpidem Tartrate (Ambien) 5 mg PO HS PRN PRN Reason: Insomnia - Labs Labs: 02/28/19 06:29 02/28/19 06:29 - Constitutional Appears: Non-toxic, No Acute Distress - Head Exam Head Exam: ATRAUMATIC, NORMOCEPHALIC - Eye Exam Eye Exam: Normal appearance Pupil Exam: NORMAL ACCOMODATION - ENT Exam ENT Exam: Mucous Membranes Moist - Respiratory Exam Respiratory Exam: NORMAL BREATHING PATTERN - GI/Abdominal Exam GI & Abdominal Exam: Soft. absent: Tenderness - Extremities Exam Extremities Exam: absent: Calf Tenderness Additional comments: Left arm abscess measuring approximately 1.0 x 1.5 cm, erythema appreciated circumfrentially, drainage appreciated Right arm in volar splint - Neurological Exam Neurological Exam: Alert, Awake, Oriented x3 - Psychiatric Exam Psychiatric exam: Normal Affect, Normal Mood - Skin Skin Exam: Warm Assessment and Plan - Assessment and Plan (Free Text) Assessment: 68 year old female patient with left arm cellulitis with abscess Plan: - Heart healthy diet - Wound culture L arm; MRSA - Local wound care - IV abx - Pain control - Warm compresses to left forearm area Latonia Gonzáles PGY1 <George Kenyon - Last Filed: 02/28/19 13:51> Objective - Vital Signs/Intake and Output Vital Signs (last 24 hours): Temp Pulse Resp BP Pulse Ox 98.9 F 73 20 118/65 95 02/28/19 07:52 02/28/19 10:03 02/28/19 07:52 02/28/19 10:03 02/28/19 07:52 - Medications Medications: Current Medications Acetaminophen (Tylenol 325mg Tab) 650 mg PO Q4 PRN PRN Reason: Pain, Mild (1-3) Alendronate Sodium (Fosamax) 70 mg PO SUN [facility] Atorvastatin Calcium (Lipitor) 10 mg PO DAILY [facility] Last Admin: 02/28/19 09:43 Dose: 10 mg Baclofen (Lioresal) 10 mg PO Q12 [facility] Last Admin: 02/28/19 09:42 Dose: 10 mg Calcium/Vitamin D (Oyster Shell Calcium/Vitamin D 500 Mg-200 Iu) 1 tab PO Q12 [facility] Last Admin: 02/28/19 09:40 Dose: 1 tab Cholecalciferol (Vitamin D) 2,000 intlu PO DAILY [facility] Last Admin: 02/28/19 09:40 Dose: 2,000 intlu Docusate Sodium (Colace) 100 mg PO HS [facility] Last Admin: 02/27/19 21:10 Dose: 100 mg Enoxaparin Sodium (Lovenox) 40 mg SC DAILY [facility]; Protocol Last Admin: 02/28/19 09:41 Dose: 40 mg Famotidine (Pepcid) 20 mg PO BID [facility] Last Admin: 02/28/19 09:39 Dose: 20 mg Gabapentin (Neurontin) 300 mg PO HS [facility] Last Admin: 02/27/19 21:10 Dose: 300 mg Vancomycin HCl 1 gm/ Sodium (Chloride) 250 mls @ 166.667 mls/hr IVPB Q12H [facility]; Protocol Last Admin: 02/28/19 05:06 Dose: 166.667 mls/hr Ibuprofen (Motrin Tab) 600 mg PO Q12 PRN PRN Reason: Pain, moderate (4-7) Lisinopril (Zestril) 10 mg PO DAILY [facility] Last Admin: 02/28/19 10:03 Dose: 10 mg Loratadine (Claritin) 10 mg PO DAILY [facility] Last Admin: 02/28/19 09:40 Dose: 10 mg Memantine (Namenda) 10 mg PO Q12 [facility] Last Admin: 02/28/19 09:41 Dose: 10 mg Metoprolol Succinate (Toprol Xl) 25 mg PO DAILY [facility] Last Admin: 02/28/19 09:41 Dose: 25 mg Multivitamins/Minerals (Therapeutic-M Tab) 1 tab PO DAILY [facility] Last Admin: 02/28/19 09:40 Dose: 1 tab Olanzapine (Zyprexa) 10 mg PO HS [facility] [id number] Ethyl Esters (Lovaza) 1 gm PO BID [facility] Last Admin: 02/28/19 09:40 Dose: 1 gm Oxybutynin Chloride (Ditropan Tab) 5 mg PO BID [facility] Last Admin: 02/28/19 09:43 Dose: 5 mg Pantoprazole Sodium (Protonix Ec Tab) 40 mg PO DAILY [facility] Last Admin: 02/28/19 09:42 Dose: 40 mg Sertraline HCl (Zoloft) 150 mg PO DAILY [facility] Last Admin: 02/28/19 12:45 Dose: 150 mg Spironolactone (Aldactone) 25 mg PO DAILY [facility] Last Admin: 02/28/19 09:42 Dose: 25 mg Vitamin E (Vitamin E 400 Units Cap) 400 intlu PO DAILY [facility] Last Admin: 02/28/19 09:40 Dose: 400 intlu Zolpidem Tartrate (Ambien) 5 mg PO HS PRN PRN Reason: Insomnia - Labs Labs: 02/28/19 06:29 02/28/19 06:29 Assessment and Plan - Assessment and Plan (Free Text) Plan: seen at bedside, resting comfortably. pt states pain slight better today, improved movement to left lower extremity gen: awake, alert, NAD ext: left gluteal/thigh ecchymosis, tenderness, improved range of motion, +DP, i ntact sentation 68yo M with left thigh/gluteal hematoma -warm compresses to left thigh area -PT f/u -no further surgical intervention at this time surgery will sign off
--- NOTE | 2019-02-28 13:59 | CP.PCM.CON ---
History of Present Illness - History of Present Illness History of Present Illness: 68yo F was seen in ER for right wrist injury and admitted for left arm cellulitis referred for ID eval of same Apparently started as a pimple and became secondarily infected denies fever chiills Has had MRSA in past PMhx: HTN, schizophrenia, depression PSHx: . Review of Systems - Review of Systems All systems: reviewed and no additional remarkable complaints except - Constitutional Constitutional: As Per HPI - EENT Eyes: absent: As Per HPI, Blind Spots, Blurred Vision, Change in Vision, Decreased Night Vision, Diplopia, Discharge, Dry Eye, Exophthalmos, Floaters, I rritation, Itchy Eyes, Loss of Peripheral Vision, Pain, Photophobia, Requires Corrective Lenses, Sees Flashes, Spots in Vision, Tunnel Vision, Other Visual Disturbances, Loss of Vision, Other Ears: absent: As Per HPI, Decreased Hearing, Ear Discharge, Ear Pain, Tinnitus, Abnormal Hearing, Disequilibrium, Dizziness, Other Nose/Mouth/Throat: absent: As Per HPI, Epistaxis, Nasal Congestion, Nasal Discharge, Nasal Obstruction, Nasal Trauma, Nose Pain, Post Nasal Drip, Sinus Pain, Sinus Pressure, Bleeding Gums, Change in Voice, Dental Pain, Dry Mouth, Dysphagia, Halitosis, Hoarsness, Lip Swelling, Mouth Lesions, Mouth Pain, Odynophagia, Sore Throat, Throat Swelling, Tongue Swelling, Facial Pain, Neck Pain, Neck Mass, Other - Breasts Breasts: absent: As Per HPI, Change in Shape, Mass, Pain, Nipple Discharge, Nipple Inversion, Skin Changes, Swelling, Other - Cardiovascular Cardiovascular: absent: As Per HPI, Acrocyanosis, Chest Pain, Chest Pain at Rest, Chest Pain with Activity, Claudication, Diaphoresis, Dyspnea, Dyspnea on Exertion, Edema, Irregular Heart Rhythm, Pain Radiating to Arm/Neck/Jaw, Leg Edema, Leg Ulcers, Lightheadedness, Orthopnea, Palpitations, Paroxysmal Nocturnal Dyspnea, Pedal Edema, Radiating Pain, Rapid Heart Rate, Slow Heart Rate, Syncope, Other - Respiratory Respiratory: absent: As Per HPI, Cough, Dyspnea, Hemoptysis, Dyspnea on Exertion, Wheezing, Snoring, Stridor, Pain on Inspiration, Chest Congestion, Excessive Mucous Production, Change in Mucous Color, Pain with Coughing, Other - Gastrointestinal Gastrointestinal: absent: As Per HPI, Abdominal Pain, Belching, Bloating, Change in Bowel Habits, Change in Stool Character, Coffee Ground Emesis, Constipation, Cramping, Diarrhea, Dyspepsia, Dysphagia, Early Satiety, Excessive Flatus, Fecal Incontinence, Heartburn, Hematemesis, Hematochezia, Loose Stools, Melena, Nausea, Odynophagia, Temesmus, Vomiting, Other - Genitourinary Genitourinary: absent: As Per HPI, Change in Urinary Stream, Difficulty Urinating, Dysuria, Flank Pain, Hematuria, Pyuria, Nocturia, Urinary Incontinence, Urinary Frequency, Urinary Hesitance, Urinary Urgency, Voiding Freq/Small Amts, Freq UTI, Hx Renal/Bladder Calculi, Hx /Renal Surgery, Bladder Distension, Other - Reproductive: Female Reproductive:Female: absent: As Per HPI, Amenorrhea, Amenorrhea/ Control, Currently Menstual, Cycle <21 Days, Cycle >35 Days, Cycle Variable, Menses 1-7 Days, Menses >/= 8 Days, Menses Variable, Cycle > 4 Weeks Between, No Menses for 6 Months, Heavy Menses, Light Menses, Normal Menses, Spotting Between Cycles, S/P Hysterectomy, Menopausal, Post Menopausal, Premenarche, Abnormal Vaginal Bleeding, Dysmenorrhea, Dyspareunia, Genital Lesions, Genital Pruritis, Pelvic Pain, Prolapse Symptoms, Sexual Dysfunction, Vaginal Discharge, Vaginal Dryness, Vaginal Odor, Vaginal Pruritis, Other - Menstruation Menstruation: absent: As Per HPI, Amenorrhea, Amenorrhea/ Control, Currently Menstual, Cycle <21 Days, Cycle >35 Days, Cycle Variable, Menses 1-7 Days, Menses >/= 8 Days, Menses Variable, Cycle > 4 Weeks Between, No Menses for 6 Months, Heavy Menses, Light Menses, Normal Menses, Spotting Between Cycles, S/P Hysterectomy, Menopausal, Post Menopausal, Premenarche, Abnormal Vaginal Bleeding, Dysmenorrhea, Other - Musculoskeletal Musculoskeletal: As Per HPI - Integumentary Integumentary: As Per HPI, Skin Pain, Wounds - Neurological Neurological: absent: As Per HPI, Abnormal Gait, Abnormal Hearing, Abnormal Movements, Abnormal Speech, Behavioral Changes, Burning Sensations, Confusion, Convulsions, Disequilibrium, Dizziness, Numbness, Focal Weakness, Frequent Falls, Headaches, Lack of Coordination, Loss of Vision, Memory Loss, Paresthesias, Radicular Pain, Restless Legs, Sensory Deficit, Syncope, Tingling, Tremor, Vertigo, Weakness, Other Visual Disturbances, Other - Psychiatric Psychiatric: As Per HPI - Endocrine Endocrine: absent: As Per HPI, Change in Body Appearance, Change in Libido, Cold Intolorance, Deepening of Voice, Excessive Sweating, Fatigue, Flushing, Heat Intolorance, Increase in Ring/Shoe/Hat Size, Palpitations, Polydipsia, Polyphagia, Polyuria, Other - Hematologic/Lymphatic Hematologic: absent: As Per HPI, Easy Bleeding, Easy Bruising, Lymphadenopathy, Other Past Patient History - Infectious Disease Hx of Infectious Diseases: None - Tetanus Immunizations Tetanus Immunization: Unknown - Past Medical History & Family History Past Medical History?: Yes - Past Social History Smoking Status: Never Smoked - CARDIAC Hx Cardiac Disorders: Yes Hx Hypertension: Yes - PULMONARY Hx Respiratory Disorders: Yes Hx Chronic Obstructive Pulmonary Disease (COPD): Yes - NEUROLOGICAL Hx Neurological Disorder: Yes Hx Dizziness: Yes - HEENT Hx HEENT Problems: Yes Other/Comment: Use Eyeglasses - RENAL Hx Chronic Kidney Disease: No - ENDOCRINE/METABOLIC Hx Endocrine Disorders: No - HEMATOLOGICAL/ONCOLOGICAL Hx Blood Disorders: No - INTEGUMENTARY Hx Dermatological Problems: Yes Other/Comment: 03-02-18 FADING BRUISE TO LEFT THIGH.DENIES FALLING.HIT IT ON SOMETHING. LARGE HORIZONTAL SCAR TO LOWER BACK.HAS A HAIRY BACK. - MUSCULOSKELETAL/RHEUMATOLOGICAL Hx Musculoskeletal Disorders: Yes Hx Falls: Yes Hx Fractures: Yes - GASTROINTESTINAL Hx Gastrointestinal Disorders: No - GENITOURINARY/GYNECOLOGICAL Hx Genitourinary Disorders: Yes Hx Urinary Tract Infection: Yes Other/Comment: STRESS INCONTINENCE,URGENCY. - PSYCHIATRIC Hx Psychophysiologic Disorder: Yes Hx Anxiety: Yes Hx Depression: Yes Hx Schizophrenia: Yes Hx Substance Use: No - SURGICAL HISTORY Hx Surgeries: Yes Hx Tonsillectomy: Yes Other/Comment: Herniated Septum - 1975 - ANESTHESIA Hx Anesthesia: Yes Hx Anesthesia Reactions: No Hx Malignant Hyperthermia: No Has any member of the family had a problem w/ anesthesia?: No Meds Allergies/Adverse Reactions: Allergies Allergy/AdvReac Type Severity Reaction Status Date / Time Sulfa (Sulfonamide Allergy RASH Verified 03/03/18 22:25 Antibiotics) - Medications Medications: Current Medications Acetaminophen (Tylenol 325mg Tab) 650 mg PO Q4 PRN PRN Reason: Pain, Mild (1-3) Alendronate Sodium (Fosamax) 70 mg PO SUN [facility] Atorvastatin Calcium (Lipitor) 10 mg PO DAILY [facility] Last Admin: 02/28/19 09:43 Dose: 10 mg Baclofen (Lioresal) 10 mg PO Q12 [facility] Last Admin: 02/28/19 09:42 Dose: 10 mg Calcium/Vitamin D (Oyster Shell Calcium/Vitamin D 500 Mg-200 Iu) 1 tab PO Q12 [facility] Last Admin: 02/28/19 09:40 Dose: 1 tab Cholecalciferol (Vitamin D) 2,000 intlu PO DAILY [facility] Last Admin: 02/28/19 09:40 Dose: 2,000 intlu Docusate Sodium (Colace) 100 mg PO [facility] Last Admin: 02/27/19 21:10 Dose: 100 mg Enoxaparin Sodium (Lovenox) 40 mg SC DAILY [facility]; Protocol Last Admin: 02/28/19 09:41 Dose: 40 mg Famotidine (Pepcid) 20 mg PO BID [facility] Last Admin: 02/28/19 09:39 Dose: 20 mg Gabapentin (Neurontin) 300 mg PO HS [facility] Last Admin: 02/27/19 21:10 Dose: 300 mg Vancomycin HCl 1 gm/ Sodium (Chloride) 250 mls @ 166.667 mls/hr IVPB Q12H [facility]; Protocol Last Admin: 02/28/19 05:06 Dose: 166.667 mls/hr Ibuprofen (Motrin Tab) 600 mg PO Q12 PRN PRN Reason: Pain, moderate (4-7) Lisinopril (Zestril) 10 mg PO DAILY [facility] Last Admin: 02/28/19 10:03 Dose: 10 mg Loratadine (Claritin) 10 mg PO DAILY [facility] Last Admin: 02/28/19 09:40 Dose: 10 mg Memantine (Namenda) 10 mg PO Q12 [facility] Last Admin: 02/28/19 09:41 Dose: 10 mg Metoprolol Succinate (Toprol Xl) 25 mg PO DAILY [facility] Last Admin: 02/28/19 09:41 Dose: 25 mg Multivitamins/Minerals (Therapeutic-M Tab) 1 tab PO DAILY [facility] Last Admin: 02/28/19 09:40 Dose: 1 tab Olanzapine (Zyprexa) 10 mg PO HS [facility] [id number] Ethyl Esters (Lovaza) 1 gm PO BID [facility] Last Admin: 02/28/19 09:40 Dose: 1 gm Oxybutynin Chloride (Ditropan Tab) 5 mg PO BID [facility] Last Admin: 02/28/19 09:43 Dose: 5 mg Pantoprazole Sodium (Protonix Ec Tab) 40 mg PO DAILY [facility] Last Admin: 02/28/19 09:42 Dose: 40 mg Sertraline HCl (Zoloft) 150 mg PO DAILY [facility] Last Admin: 02/28/19 12:45 Dose: 150 mg Spironolactone (Aldactone) 25 mg PO DAILY [facility] Last Admin: 02/28/19 09:42 Dose: 25 mg Vitamin E (Vitamin E 400 Units Cap) 400 intlu PO DAILY [facility] Last Admin: 02/28/19 09:40 Dose: 400 intlu Zolpidem Tartrate (Ambien) 5 mg PO HS PRN PRN Reason: Insomnia Physical Exam - Constitutional Appears: Non-toxic, No Acute Distress, Chronically Ill - Head Exam Head Exam: ATRAUMATIC, NORMAL INSPECTION, NORMOCEPHALIC - Eye Exam Eye Exam: EOMI, Normal appearance, PERRL Pupil Exam: NORMAL ACCOMODATION, PERRL - ENT Exam ENT Exam: Mucous Membranes Moist, Normal Exam - Neck Exam Neck exam: Positive for: Normal Inspection. Negative for: Lymphadenopathy, Thyromegaly - Respiratory Exam Respiratory Exam: Decreased Breath Sounds, Clear to Auscultation Bilateral - Cardiovascular Exam Cardiovascular Exam: REGULAR RHYTHM, +S1, +S2 - GI/Abdominal Exam GI & Abdominal Exam: Normal Bowel Sounds, Soft. absent: Tenderness - Rectal Exam Rectal Exam: Deferred - Exam Exam: NORMAL INSPECTION - Extremities Exam Extremities exam: Positive for: pedal pulses present. Negative for: calf tenderness, joint swelling, normal inspection, pedal edema Additional comments: right wrist in a soft cast left forearm with large furuncle with drainable pus - cultures sent - Back Exam Back exam: NORMAL INSPECTION - Neurological Exam Neurological exam: Alert, CN II-XII Intact, Normal Gait, Oriented x3, Reflexes Normal - Psychiatric Exam Psychiatric exam: Normal Affect, Normal Mood - Skin Skin Exam: Dry, Intact, Normal Color, Warm Results - Vital Signs Recent Vital Signs: Last Vital Signs Temp 98.9 F 02/28/19 07:52 Pulse 73 02/28/19 10:03 Resp 20 02/28/19 07:52 BP 118/65 02/28/19 10:03 Pulse Ox 95 02/28/19 07:52 - Labs Result Diagrams: 02/28/19 06:29 02/28/19 06:29 Labs: Laboratory Results - last 24 hr 02/27/19 02/27/19 02/28/19 16:55 16:55 06:29 WBC 5.7 RBC 3.49 L Hgb 10.2 L Hct 30.2 L MCV 86.3 MCH 29.1 MCHC 33.7 RDW 14.2 Plt Count 283 MPV 7.8 Neut % (Auto) 71.9 Lymph % (Auto) 10.9 L [place] % (Auto) 11.5 H Eos % (Auto) 5.2 H Baso % (Auto) 0.5 Neut # (Auto) 4.1 Lymph # (Auto) 0.6 L [place] # (Auto) 0.7 Eos # (Auto) 0.3 Baso # (Auto) 0.0 Sodium Potassium Chloride Carbon Dioxide Anion Gap BUN Creatinine Est GFR ( Amer) Est GFR (Non-Af Amer) Random Glucose Calcium Phosphorus Magnesium Iron 18 L TIBC 271 % Saturation 7 L Ferritin 106.0 Total Bilirubin AST ALT Alkaline Phosphatase Total Protein Albumin Globulin Albumin/Globulin Ratio Vitamin B12 879 25-OH Vitamin D Total 99.2 02/28/19 06:29 WBC RBC Hgb Hct MCV MCH MCHC RDW Plt Count MPV Neut % (Auto) Lymph % (Auto) [place] % (Auto) Eos % (Auto) Baso % (Auto) Neut # (Auto) Lymph # (Auto) [place] # (Auto) Eos # (Auto) Baso # (Auto) Sodium 137 Potassium 3.9 Chloride 101 Carbon Dioxide 29 Anion Gap 11 BUN 20 H Creatinine 0.7 Est GFR ( Amer) > 60 Est GFR (Non-Af Amer) > 60 Random Glucose 104 Calcium 9.6 Phosphorus 2.9 Magnesium 2.0 Iron TIBC % Saturation Ferritin Total Bilirubin 0.4 AST 52 H ALT 50 Alkaline Phosphatase 82 Total Protein 6.3 Albumin 3.3 L Globulin 3.0 Albumin/Globulin Ratio 1.1 Vitamin B12 25-OH Vitamin D Total Assessment & Plan (1) Cellulitis of left arm Status: Acute (2) Right hand fracture Status: Acute - Assessment and Plan (Free Text) Assessment: severe cellulitis left forearm likely staph ? MRSA cultures pending cont IV antibiotics and wound care for I and D tomorrow
--- NOTE | 2019-03-01 02:20 | CP.PCM.HP ---
History of Present Illness - History of Present Illness History of Present Illness: CC: Urinary incontinence with associated foul-smelling urine. HPI: 68 y/o female presented to the ED s/p falls; as per the pt she fell several times recently, and suffered a head injury, as well as injuries to her right hand. Over the past week, the patient has developed a reddened area on her left forearm. CT head was negative, X-ray of the right hand revealed oblique fracture of fifth metacarpal bone. A right arm splint is currently applied. The pt was started on Vancomycin, and infectious disease was consulted. PMH: Anxiety, COPD, Depression, HTN, Hypercholesterolemia, Hyperlipidemia, Schizophrenia. PSH: Tonsillectomy, . Allergies: Sulfonamide antibiotics. Subjective Review of Systems: Reviewed and no additional remarkable complaints except left forearm and right hand redness and pain. Objective Appears: Anxious, Non-toxic, No Acute Distress. Head Exam: NORMAL INSPECTION, normocephalic. Eye Exam: Normal eye inspection, EOMI, PERRLA. Respiratory Exam: NORMAL BREATHING PATTERN, breath sounds clear bilaterally. Cardiovascular Exam: +S1, +S2. RRR. GI & Abdominal Exam: Soft, non-tender, non-distended. Neurological Exam: Alert, Awake, Oriented x3. Psychiatric exam: Normal mood. Calm and cooperative. Skin Exam: Redness to the left forearm with gauze covering the area. Assessment/Impression/Plan: 1.) Left arm cellulitis -Currently on Vancomycin. -Wound culture pending. -Monitor for systemic s/s infection. -Infectious disease consult appreciated input. -Psych consult; hx of schizophrenia. -Ibuprofen for pain and swelling. -Continue current treatment. Present on Admission - Present on Admission Any Indicators Present on Admission: No Past Patient History - Infectious Disease Hx of Infectious Diseases: None - Tetanus Immunizations Tetanus Immunization: Unknown - Past Medical History & Family History Past Medical History?: Yes - Past Social History Smoking Status: Never Smoked - CARDIAC Hx Cardiac Disorders: Yes Hx Hypertension: Yes - PULMONARY Hx Respiratory Disorders: Yes Hx Chronic Obstructive Pulmonary Disease (COPD): Yes - NEUROLOGICAL Hx Neurological Disorder: Yes Hx Dizziness: Yes - HEENT Hx HEENT Problems: Yes Other/Comment: Use Eyeglasses - RENAL Hx Chronic Kidney Disease: No - ENDOCRINE/METABOLIC Hx Endocrine Disorders: No - HEMATOLOGICAL/ONCOLOGICAL Hx Blood Disorders: No - INTEGUMENTARY Hx Dermatological Problems: Yes Other/Comment: 03-02-18 FADING BRUISE TO LEFT THIGH.DENIES FALLING.HIT IT ON SOMETHING. LARGE HORIZONTAL SCAR TO LOWER BACK.HAS A HAIRY BACK. - MUSCULOSKELETAL/RHEUMATOLOGICAL Hx Musculoskeletal Disorders: Yes Hx Falls: Yes Hx Fractures: Yes - GASTROINTESTINAL Hx Gastrointestinal Disorders: No - GENITOURINARY/GYNECOLOGICAL Hx Genitourinary Disorders: Yes Hx Urinary Tract Infection: Yes Other/Comment: STRESS INCONTINENCE,URGENCY. - PSYCHIATRIC Hx Psychophysiologic Disorder: Yes Hx Anxiety: Yes Hx Depression: Yes Hx Schizophrenia: Yes Hx Substance Use: No - SURGICAL HISTORY Hx Surgeries: Yes Hx Tonsillectomy: Yes Other/Comment: Herniated Septum - 1974 - ANESTHESIA Hx Anesthesia: Yes Hx Anesthesia Reactions: No Hx Malignant Hyperthermia: No Has any member of the family had a problem w/ anesthesia?: No Meds Allergies/Adverse Reactions: Allergies Allergy/AdvReac Type Severity Reaction Status Date / Time Sulfa (Sulfonamide Allergy RASH Verified 03/03/18 22:25 Antibiotics) Results - Vital Signs Recent Vital Signs: Last Vital Signs Temp 98.3 F 02/28/19 23:59 Pulse 76 02/28/19 23:59 Resp 19 02/28/19 23:59 BP 146/63 02/28/19 23:59 Pulse Ox 95 02/28/19 23:59 - Labs Result Diagrams: 02/28/19 06:29 02/28/19 06:29 Labs: Laboratory Results - last 24 hr 02/27/19 02/28/19 02/28/19 16:55 06:29 06:29 WBC 5.7 RBC 3.49 L Hgb 10.2 L Hct 30.2 L MCV 86.3 MCH 29.1 MCHC 33.7 RDW 14.2 Plt Count 283 MPV 7.8 Neut % (Auto) 71.9 Lymph % (Auto) 10.9 L [place] % (Auto) 11.5 H Eos % (Auto) 5.2 H Baso % (Auto) 0.5 Neut # (Auto) 4.1 Lymph # (Auto) 0.6 L [place] # (Auto) 0.7 Eos # (Auto) 0.3 Baso # (Auto) 0.0 Sodium 137 Potassium 3.9 Chloride 101 Carbon Dioxide 29 Anion Gap 11 BUN 20 H Creatinine 0.7 Est GFR ( Amer) > 60 Est GFR (Non-Af Amer) > 60 Random Glucose 104 Calcium 9.6 Phosphorus 2.9 Magnesium 2.0 Total Bilirubin 0.4 AST 52 H ALT 50 Alkaline Phosphatase 82 Total Protein 6.3 Albumin 3.3 L Globulin 3.0 Albumin/Globulin Ratio 1.1 RBC Folate 1243 Assessment & Plan (1) Cellulitis of left arm Status: Acute (2) Right hand fracture Status: Acute
--- NOTE | 2019-03-01 02:25 | CP.PCM.PN ---
Subjective - Date & Time of Evaluation Date of Evaluation: 02/28/19 Time of Evaluation: 10:00 - Subjective Subjective: Pt sitting at bedside chair, reports no new complaints. Wound culture came back today and resulted as positive for MRSA. Supportive care for now; evaluate need for I&D. Subjective Review of Systems: Reviewed and no additional remarkable complaints except left forearm redness and right hand pain. Objective Appears: Anxious, Non-toxic, No Acute Distress. Head Exam: NORMAL INSPECTION, normocephalic. Eye Exam: Normal eye inspection, EOMI, PERRLA. Respiratory Exam: NORMAL BREATHING PATTERN, breath sounds clear bilaterally. Cardiovascular Exam: +S1, +S2. RRR. GI & Abdominal Exam: Soft, non-tender, non-distended. Neurological Exam: Alert, Awake, Oriented x3. Psychiatric exam: Normal mood. Calm and cooperative. Skin Exam: Redness to the left forearm with gauze covering the area. Assessment/Impression/Plan: 1.) Left arm cellulitis -Left arm wound culture revealed MRSA. -Contact precautions in place. -Warm compress/local wound care. Evaluate need for I&D if worsening of wound site. -Currently on Vancomycin. -Infectious disease consult appreciated input. Objective - Vital Signs/Intake and Output Vital Signs (last 24 hours): Temp Pulse Resp BP Pulse Ox 98.3 F 76 19 146/63 95 02/28/19 23:59 02/28/19 23:59 02/28/19 23:59 02/28/19 23:59 02/28/19 23:59 - Medications Medications: Current Medications Acetaminophen (Tylenol 325mg Tab) 650 mg PO Q4 PRN PRN Reason: Pain, Mild (1-3) Alendronate Sodium (Fosamax) 70 mg PO SUN [facility] Atorvastatin Calcium (Lipitor) 10 mg PO DAILY [facility] Last Admin: 02/28/19 09:43 Dose: 10 mg Baclofen (Lioresal) 10 mg PO Q12 [facility] Last Admin: 02/28/19 23:00 Dose: 10 mg Calcium/Vitamin D (Oyster Shell Calcium/Vitamin D 500 Mg-200 Iu) 1 tab PO Q12 [facility] Last Admin: 02/28/19 23:01 Dose: 1 tab Cholecalciferol (Vitamin D) 2,000 intlu PO DAILY [facility] Last Admin: 02/28/19 09:40 Dose: 2,000 intlu Docusate Sodium (Colace) 100 mg PO HS [facility] Last Admin: 02/28/19 23:00 Dose: Not Given Enoxaparin Sodium (Lovenox) 40 mg SC DAILY [facility]; Protocol Last Admin: 02/28/19 09:41 Dose: 40 mg Famotidine (Pepcid) 20 mg PO BID [facility] Last Admin: 02/28/19 16:57 Dose: 20 mg Gabapentin (Neurontin) 300 mg PO HS [facility] Last Admin: 02/28/19 23:01 Dose: 300 mg Vancomycin HCl 1 gm/ Sodium (Chloride) 250 mls @ 166.667 mls/hr IVPB Q12H [facility]; Protocol Last Admin: 02/28/19 17:00 Dose: 166.667 mls/hr Ibuprofen (Motrin Tab) 600 mg PO Q12 PRN PRN Reason: Pain, moderate (4-7) Lisinopril (Zestril) 10 mg PO DAILY [facility] Last Admin: 02/28/19 10:03 Dose: 10 mg Loratadine (Claritin) 10 mg PO DAILY [facility] Last Admin: 02/28/19 09:40 Dose: 10 mg Memantine (Namenda) 10 mg PO Q12 [facility] Last Admin: 02/28/19 23:01 Dose: 10 mg Metoprolol Succinate (Toprol Xl) 25 mg PO DAILY [facility] Last Admin: 02/28/19 09:41 Dose: 25 mg Multivitamins/Minerals (Therapeutic-M Tab) 1 tab PO DAILY [facility] Last Admin: 02/28/19 09:40 Dose: 1 tab Olanzapine (Zyprexa) 10 mg PO HS [facility] Last Admin: 02/28/19 23:02 Dose: 10 mg [id number] Ethyl Esters (Lovaza) 1 gm PO BID [facility] Last Admin: 02/28/19 16:56 Dose: 1 gm Oxybutynin Chloride (Ditropan Tab) 5 mg PO Q12H [facility] Last Admin: 02/28/19 23:01 Dose: 5 mg Pantoprazole Sodium (Protonix Ec Tab) 40 mg PO DAILY [facility] Last Admin: 02/28/19 09:42 Dose: 40 mg Sertraline HCl (Zoloft) 150 mg PO DAILY [facility] Last Admin: 02/28/19 12:45 Dose: 150 mg Spironolactone (Aldactone) 25 mg PO DAILY [facility] Last Admin: 02/28/19 09:42 Dose: 25 mg Vitamin E (Vitamin E 400 Units Cap) 400 intlu PO DAILY [facility] Last Admin: 02/28/19 09:40 Dose: 400 intlu Zolpidem Tartrate (Ambien) 5 mg PO HS PRN PRN Reason: Insomnia - Labs Labs: 02/28/19 06:29 02/28/19 06:29 Assessment and Plan (1) Cellulitis of left arm Status: Acute (2) Right hand fracture Status: Acute
[2019-03-01 06:03] LABS: BASO % 0.8 % (0.0-2.0); EOS # 0.3 K/uL (0.0-0.7); EOS % 6.5 % (0.0-4.0); HEMOGLOBIN 10.2 g/dL (12.0-16.0); LYMPH # 0.7 K/uL (1.0-4.3); LYMPH % 13.6 % (20.0-40.0); MEAN CELL VOLUME 86.5 fl (81.0-99.0); MEAN CORPUSCULAR HEMOGLOBIN 28.8 pg (27.0-31.0); MEAN CORPUSCULAR HGB CONC 33.3 g/dL (33.0-37.0); MEAN PLATELET VOLUME 7.4 fl (7.2-11.7); MONO # 0.7 K/uL (0.0-0.8); MONO % 12.3 % (0.0-10.0); NEUT # 3.6 K/uL (1.8-7.0); NEUT % 66.8 % (50.0-75.0); RBC 3.53 Mil/uL (3.80-5.20); WHITE BLOOD COUNT 5.3 K/uL (4.8-10.8)
[2019-03-01 06:24] LABS: ALB/GLOB RATIO 1.1 (1.0-2.1); ALBUMIN 3.6 g/dL (3.5-5.0); ALT/SGPT 58 U/L (9-52); AST/SGOT 64 U/L (14-36); BLOOD UREA NITROGEN 19 mg/dl (7-17); CALCIUM 10.1 mg/dL (8.4-10.2); GFR NON-AFRICAN AMERICAN > 60
--- NOTE | 2019-03-01 10:25 | CP.PCM.PN ---
Subjective - Date & Time of Evaluation Date of Evaluation: 03/01/19 Time of Evaluation: 10:17 - Subjective Subjective: General Surgery Pt seen and examined this AM with Dr. Kenyon. Pt reports having minimal pain to the left forearm. Denies fever or chills. Tolerating diet. (+) MRSA in wound Labs and vitals noted. PE Gen: Pt sitting in chair in NAD Skin: warm and dry, see below Respiratory: (-) labord breathing, (-) tachypnea Extr: Right wrist in splint. Left forearm with 7-8 cm induration with a 2cm opening in center,(+) fibrinous tissue. (+) draining, (-) odor, (+) erythema. A/P Left forearm abscess and cellulitis At bedside wound was drained by hand expression. About 8ml of purulent fluid expressed and a minor debridement of fibronous tissue was performed. Continue IV antibiotics as per ID Local wound care includes cleaning the area with saline, inserting a wet gauze with saline, covering it up with a dry gauze and wrapping arm in capri. Monitor labs and vitals. Objective - Vital Signs/Intake and Output Vital Signs (last 24 hours): Temp Pulse Resp BP Pulse Ox 97.7 F 66 18 124/70 95 03/01/19 08:04 03/01/19 08:04 03/01/19 08:04 03/01/19 08:04 03/01/19 08:04 - Medications Medications: Current Medications Acetaminophen (Tylenol 325mg Tab) 650 mg PO Q4 PRN PRN Reason: Pain, Mild (1-3) Alendronate Sodium (Fosamax) 70 mg PO [facility] Atorvastatin Calcium (Lipitor) 10 mg PO DAILY [facility] Last Admin: 02/28/19 09:43 Dose: 10 mg Baclofen (Lioresal) 10 mg PO Q12 [facility] Last Admin: 02/28/19 23:00 Dose: 10 mg Calcium/Vitamin D (Oyster Shell Calcium/Vitamin D 500 Mg-200 Iu) 1 tab PO Q12 [facility] Last Admin: 02/28/19 23:01 Dose: 1 tab Cholecalciferol (Vitamin D) 2,000 intlu PO DAILY [facility] Last Admin: 02/28/19 09:40 Dose: 2,000 intlu Docusate Sodium (Colace) 100 mg PO HS [facility] Last Admin: 02/28/19 23:00 Dose: Not Given Enoxaparin Sodium (Lovenox) 40 mg SC DAILY [facility]; Protocol Last Admin: 02/28/19 09:41 Dose: 40 mg Famotidine (Pepcid) 20 mg PO BID [facility] Last Admin: 02/28/19 16:57 Dose: 20 mg Gabapentin (Neurontin) 300 mg PO HS [facility] Last Admin: 02/28/19 23:01 Dose: 300 mg Vancomycin HCl 1 gm/ Sodium (Chloride) 250 mls @ 166.667 mls/hr IVPB Q12H [facility]; Protocol Last Admin: 02/28/19 17:00 Dose: 166.667 mls/hr Ibuprofen (Motrin Tab) 600 mg PO Q12 PRN PRN Reason: Pain, moderate (4-7) Lisinopril (Zestril) 10 mg PO DAILY [facility] Last Admin: 02/28/19 10:03 Dose: 10 mg Loratadine (Claritin) 10 mg PO DAILY [facility] Last Admin: 02/28/19 09:40 Dose: 10 mg Memantine (Namenda) 10 mg PO Q12 [facility] Last Admin: 02/28/19 23:01 Dose: 10 mg Metoprolol Succinate (Toprol Xl) 25 mg PO DAILY [facility] Last Admin: 02/28/19 09:41 Dose: 25 mg Multivitamins/Minerals (Therapeutic-M Tab) 1 tab PO DAILY [facility] Last Admin: 02/28/19 09:40 Dose: 1 tab Olanzapine (Zyprexa) 10 mg PO [facility] Last Admin: 02/28/19 23:02 Dose: 10 mg [id number] Ethyl Esters (Lovaza) 1 gm PO BID [facility] Last Admin: 02/28/19 16:56 Dose: 1 gm Oxybutynin Chloride (Ditropan Tab) 5 mg PO Q12H [facility] Last Admin: 02/28/19 23:01 Dose: 5 mg Pantoprazole Sodium (Protonix Ec Tab) 40 mg PO DAILY [facility] Last Admin: 02/28/19 09:42 Dose: 40 mg Sertraline HCl (Zoloft) 150 mg PO DAILY [facility] Last Admin: 02/28/19 12:45 Dose: 150 mg Spironolactone (Aldactone) 25 mg PO DAILY [facility] Last Admin: 02/28/19 09:42 Dose: 25 mg Vitamin E (Vitamin E 400 Units Cap) 400 intlu PO DAILY [facility] Last Admin: 02/28/19 09:40 Dose: 400 intlu Zolpidem Tartrate (Ambien) 5 mg PO HS PRN PRN Reason: Insomnia - Labs Labs: 03/01/19 05:55 03/01/19 05:55
[2019-03-01] MEDS: Enoxaparin 40 mg Syringe SC SCH (11:01)
[2019-03-01] MEDS: Multivitamin With Minerals Tab PO SCH (11:02)
[2019-03-01] MEDS: Omega-3-Acid Ethyl Esters 1 GM Cap PO SCH ×2 (11:03→17:23)
[2019-03-01] MEDS: Calcium-Vit D 500 mg-200 Units Tab UD PO SCH (11:03)
[2019-03-01] MEDS: Pantoprazole 40 mg EC Tab PO SCH (11:03)
[2019-03-01] MEDS: Metoprolol Succinate 25 mg XL Tab PO SCH (11:04)
[2019-03-01] MEDS: Cholecalciferol 1,000 INTLU TAB PO SCH (11:05)
[2019-03-01] MEDS: FLUTICASONE PROPION/SALMETEROL 113-14 IH SCH (11:08)
[2019-03-01] MEDS ORDERED: Lidocaine Hydrochloride 5 ML INJ ONE (12:59)
--- NOTE | 2019-03-01 13:28 | PCM.SURG1 ---
Surgeon's Initial Post Op Note - Surgeon's Notes Surgeon: Jermaine Michael MD News Writer: NONE Type of Anesthesia: Local Pre-Operative Diagnosis: Infection Operative Findings: US showed a patent right basilic vein Post-Operative Diagnosis: Infection Operation Performed: Single lumen picc placement right arm, 37 cm. Specimen/Specimens Removed: None Estimated Blood Loss: EBL {In ML}: 2 Blood Products Given: N/A Drains Used: No Drains Post-Op Condition: Fair Date of Surgery/Procedure: 03/01/19 Time of Surgery/Procedure: 13:25
[2019-03-01 13:33] VITALS: O2SAT 97
--- NOTE | 2019-03-01 13:35 | VASCULAR ---
PROCEDURE: Date of procedure: 03/01/2019 Procedure: 1. Placement of a right arm PICC with ultrasound and fluoroscopic guidance, CPT 04241 2. PICC tip confirmation with spot radiograph and is in the superior vena cava Medications: 3cc 1 percent lidocaine Total Fluoro time: 5.1 Seconds Radiation: 0.45 MGy EBL: 2 cc HISTORY: Infection requiring long-term IV antibiotics TECHNIQUE: Following informed consent and procedure time-out, the patient was placed supine on the interventional table and the right arm prepped and draped in the usual sterile fashion. Ultrasound showed a patent and compressible right basilic vein. After the skin was anesthetized with lidocaine, the basilic vein was accessed with micro micropuncture technique using ultrasound guidance. A guidewire was then advanced under fluoroscopic guidance into the superior vena cava. An image documenting ultrasound guidance for vascular access was permanently saved. The length of the single-lumen 4 Thai PICC was trimmed to 37 centimeters and advanced through a peel-away sheath. The PICC was position with tip of PICC confirm a spot radiograph the superior vena cava. The PICC was secured to the patient's skin. The PICC was flushed. A biopatch and sterile dressing was applied. IMPRESSION: Placement of a single-lumen 4 Thai PICC trimmed to 37 centimeters via right basilic vein. The tip of the PICC is confirmed with spot radiograph and is in the superior vena cava.
--- NOTE | 2019-03-01 14:59 | CP.PCM.PCO ---
Assessment/Plan - Assessment/Plan Assessment (Free Text): Per Dr. Mir, pt to continue IV Vanco x 7-10 days, then switch to oral Clindamycin. Meds as per med rec. Pt seen and cleared for d/c by all consultants - Consults Consult Orders: Consultations
[2019-03-01 16:29] VITALS: BP 94/56; PULSE 70; RESP 20; TEMP 97.6
--- NOTE | 2019-03-01 17:36 | CP.PCM.PN ---
Subjective - Date & Time of Evaluation Date of Evaluation: 03/01/19 Time of Evaluation: 07:00 - Subjective Subjective: c/s + MRSA IV rx to continue Objective - Vital Signs/Intake and Output Vital Signs (last 24 hours): Temp Pulse Resp BP Pulse Ox 97.6 F 70 20 94/56 L 97 03/01/19 16:29 03/01/19 16:29 03/01/19 16:29 03/01/19 16:29 03/01/19 16:29 - Medications Medications: Current Medications Acetaminophen (Tylenol 325mg Tab) 650 mg PO Q4 PRN PRN Reason: Pain, Mild (1-3) Alendronate Sodium (Fosamax) 70 mg PO [facility] Atorvastatin Calcium (Lipitor) 10 mg PO DAILY [facility] Last Admin: 03/01/19 11:02 Dose: 10 mg Baclofen (Lioresal) 10 mg PO Q12 [facility] Last Admin: 03/01/19 11:03 Dose: 10 mg Calcium/Vitamin D (Oyster Shell Calcium/Vitamin D 500 Mg-200 Iu) 1 tab PO Q12 [facility] Last Admin: 03/01/19 11:03 Dose: 1 tab Cholecalciferol (Vitamin D) 2,000 intlu PO DAILY [facility] Last Admin: 03/01/19 11:05 Dose: 2,000 intlu Docusate Sodium (Colace) 100 mg PO [facility] Last Admin: 02/28/19 23:00 Dose: Not Given Enoxaparin Sodium (Lovenox) 40 mg SC DAILY [facility]; Protocol Last Admin: 03/01/19 11:01 Dose: 40 mg Famotidine (Pepcid) 20 mg PO BID [facility] Last Admin: 03/01/19 17:23 Dose: 20 mg Gabapentin (Neurontin) 300 mg PO [facility] Last Admin: 02/28/19 23:01 Dose: 300 mg Vancomycin HCl 1 gm/ Sodium (Chloride) 250 mls @ 166.667 mls/hr IVPB Q12H [facility]; Protocol Last Admin: 03/01/19 10:59 Dose: 166.667 mls/hr Ibuprofen (Motrin Tab) 600 mg PO Q12 PRN PRN Reason: Pain, moderate (4-7) Lisinopril (Zestril) 10 mg PO DAILY [facility] Last Admin: 03/01/19 11:05 Dose: 10 mg Loratadine (Claritin) 10 mg PO DAILY [facility] Last Admin: 03/01/19 11:08 Dose: 10 mg Memantine (Namenda) 10 mg PO Q12 [facility] Last Admin: 03/01/19 11:05 Dose: 10 mg Metoprolol Succinate (Toprol Xl) 25 mg PO DAILY [facility] Last Admin: 03/01/19 11:04 Dose: 25 mg Multivitamins/Minerals (Therapeutic-M Tab) 1 tab PO DAILY [facility] Last Admin: 03/01/19 11:02 Dose: 1 tab Olanzapine (Zyprexa) 10 mg PO HS [facility] Last Admin: 02/28/19 23:02 Dose: 10 mg [id number] Ethyl Esters (Lovaza) 1 gm PO BID [facility] Last Admin: 03/01/19 17:23 Dose: 1 gm Oxybutynin Chloride (Ditropan Tab) 5 mg PO Q12H [facility] Last Admin: 03/01/19 11:06 Dose: 5 mg Pantoprazole Sodium (Protonix Ec Tab) 40 mg PO DAILY [facility] Last Admin: 03/01/19 11:03 Dose: 40 mg Sertraline HCl (Zoloft) 150 mg PO DAILY [facility] Last Admin: 03/01/19 11:04 Dose: 150 mg Spironolactone (Aldactone) 25 mg PO DAILY [facility] Last Admin: 03/01/19 11:07 Dose: 25 mg Vitamin E (Vitamin E 400 Units Cap) 400 intlu PO DAILY [facility] Last Admin: 03/01/19 11:05 Dose: 400 intlu Zolpidem Tartrate (Ambien) 5 mg PO HS PRN PRN Reason: Insomnia - Labs Labs: 03/01/19 05:55 03/01/19 05:55 - Constitutional Appears: Non-toxic, Chronically Ill - Head Exam Head Exam: ATRAUMATIC, NORMAL INSPECTION, NORMOCEPHALIC - Eye Exam Eye Exam: EOMI, Normal appearance, PERRL Pupil Exam: NORMAL ACCOMODATION, PERRL - ENT Exam ENT Exam: Mucous Membranes Moist, Normal Exam - Neck Exam Neck Exam: Full ROM, Normal Inspection. absent: Lymphadenopathy - Respiratory Exam Respiratory Exam: Clear to Ausculation Bilateral, NORMAL BREATHING PATTERN - Cardiovascular Exam Cardiovascular Exam: REGULAR RHYTHM, +S1, +S2. absent: Murmur - GI/Abdominal Exam GI & Abdominal Exam: Soft, Normal Bowel Sounds. absent: Tenderness - Rectal Exam Rectal Exam: Deferred - Exam Exam: NORMAL INSPECTION - Extremities Exam Extremities Exam: Full ROM, Normal Capillary Refill. absent: Joint Swelling, Pedal Edema Additional comments: right wrist in splint left arm wound dressing C/D/I - Back Exam Back Exam: NORMAL INSPECTION - Neurological Exam Neurological Exam: Alert, Awake, CN II-XII Intact, Normal Gait, Oriented x3 - Psychiatric Exam Psychiatric exam: Normal Affect, Normal Mood - Skin Skin Exam: Dry, Intact, Normal Color, Warm Assessment and Plan (1) Cellulitis of left arm Status: Acute (2) Right hand fracture Status: Acute - Assessment and Plan (Free Text) Assessment: cont iv rx for MRSA cellulitis/ abscess for 7-10 days
--- NOTE | 2019-03-02 08:32 | PQF ---
PROVIDER RESPONSE TEXT: Chronic undifferentiated REVIEWER QUERY TEXT: Schizophrenia Type Schizophrenia is documented in the Medical Record. Please specify the type if known Such as: -- Simple schizophrenia -- Catatonic schizophrenia -- Paranoid schizophrenia -- Latent schizophrenia -- Residual -- Cyclic -- Acute undifferentiated -- Chronic undifferentiated -- Other, please specify Psych consult: Assessment: schizophrenia hoarding disorder Plan: pt at current mental status stable recommend to decrease zyprexa to 10mg daily decrease zoloft to 150 mg daily The patient's Clinical Indicators include: -- Query created by: Brooke Jenkins on 03/01/2019 12:49 PM Electronically signed by: Sin Herbert MD 03/02/2019 8:29 AM
--- NOTE | 2019-03-03 00:11 | PQF ---
PROVIDER RESPONSE TEXT: Sepsis ruled out. REVIEWER QUERY TEXT: Conflicting Documentation Clarification Physician?s Documentation Request This Form is Not a Permanent Document in the Medical Record Pt Name: TOMÁS CHRIS MR #: [id number] Payor: MEDICARE PART A Unit/Bed: [id number] Adm Date: 02/26/2019 6:24:00 PM Reviewer: Brooke Alice Ext. Query Date: 03/01/2019 12:15:34 PM Conflicting Documentation Clarification [id number] By submitting this query, we are merely seeking further clarification of documentation to accurately reflect all conditions that you are monitoring, evaluating, treating or that extend the hospitalizati on or utilize additional resources of care. Please utilize your independent clinical judgment when ad dressing the question(s) below. Dear Doctor Ulysses Collazo, The patient?s Clinical Indicators include: --- A single mention of Sepsis is listed in the ER record. Please document if Sepsis is: -- Confirmed and current -- Confirmed, treated and resolved -- Ruled out -- Other, please specify Temperature: 100.1->99.9->99.3->99.3 Pulse:95->88->78->82 Blood culture:prelim: no growth after 48 hrs. ER: Clinical Impression: Cellulitis of left arm, Right hand fracture, Sepsis 02/28 LOGGING ENGINEER progress note: Wound culture came back today and resulted as positive for MRSA. (2) Right hand fracture Status: Acute PLEASE DOCUMENT ANY ADDITIONAL DIAGNOSES AND/OR SPECIFICITY IN THE PROGRESS NOTES AND/OR DISCHARGE FLORES MMARY. Clinically unable to determine/unknown Disagree with the above request Need to discuss Query created by: Brooke Jenkins on 03/01/2019 12:15 PM Electronically signed by: Ulysses Collazo APN 03/03/2019 12:08 AM
[2019-03-04] MEDS ORDERED: ALENDRONATE 70 MG TAB PO SCH (09:00)
--- NOTE | 2019-03-06 15:24 | PQF ---
PROVIDER RESPONSE TEXT: pt had a 1.5cm x 1cm abscess with surrounding erythema, pt had scab over central area of wound. Purulent discharge was expressed out by hand pressure, and scab removed. No debridement. 1.5cm x 1cm scab was removed and wound was drained by hand of 8ml of purulent fluid REVIEWER QUERY TEXT: Debridement is documented in the Medical Record. Please specify the following: A. The type: Non Excisional versus Excisional Debridement B. If Excisional Debridement please include the following: -Size and appearance of wound debrided (e.g., down to fresh bleeding tissue, 7 cm x 10 cm, etc.) -Removal of devitalized tissue description (devitalized, tissues, necrotic, nonviable tissue, etc.) -Cutting instrument (s) used (curette, forceps, scalpel, scissors, etc.) 03/01 ENERGY SCHEDULER:At bedside wound was drained by hand expression. About 8ml of purulent fluid expressed and a minor debridement of fibronous tissue was performed.Continue IV antibiotics as per ID Local wound care includes cleaning the area with saline, inserting a wet gauze with saline, covering it up with a dry gauze and wrapping arm in capri. -- Query created by: Brooke Jenkins on 03/01/2019 03:19 PM PANCHO
== END 2019-03-01 18:00 | DRG 603 ==
LOC: H.ER 13:10 → H.ERHOLD 18:24 → H.MEDSURG1 21:08
PROVIDERS: ADMIT Family Medicine; ATTEND Family Medicine
PROC: 02HV33Z Insertion of Infusion Device into Superior Vena Cava, Percutaneous Approach (ICD-10-PCS; principal; 2019-03-01)
PROC: B548ZZA Ultrasonography of Superior Vena Cava, Guidance (ICD-10-PCS; 2019-03-01)
PROC: 3E04329 Introduction of Other Anti-infective into Central Vein, Percutaneous Approach (ICD-10-PCS; 2019-03-01)
PROC: 0HBEXZZ Excision of Left Lower Arm Skin, External Approach (ICD-10-PCS; 2019-03-01)
PROC: 0J9H3ZZ Drainage of Left Lower Arm Subcutaneous Tissue and Fascia, Percutaneous Approach (ICD-10-PCS; 2019-03-01)
DX: L03.114 Cellulitis of left upper limb (principal); F20.5 Residual schizophrenia; L02.414 Cutaneous abscess of left upper limb; S62.397A Other fracture of fifth metacarpal bone, left hand, initial encounter for closed fracture; B95.62 Methicillin resistant Staphylococcus aureus infection as the cause of diseases classified elsewhere; S09.90XA Unspecified injury of head, initial encounter; S70.12XA Contusion of left thigh, initial encounter; I10 Essential (primary) hypertension; N39.3 Stress incontinence (female) (male); E78.00 Pure hypercholesterolemia, unspecified; E78.5 Hyperlipidemia, unspecified; F42.3 Hoarding disorder; F32.9 Major depressive disorder, single episode, unspecified; F41.9 Anxiety disorder, unspecified; J44.9 Chronic obstructive pulmonary disease, unspecified; W19.XXXA Unspecified fall, initial encounter; Z91.81 History of falling; Z88.2 Allergy status to sulfonamides; Z87.440 Personal history of urinary (tract) infections; Z79.83 Long term (current) use of bisphosphonates